=== PATIENT | female | born 1945 | race Caucasian/White ===

== ENCOUNTER 2017-04-12 10:39 | Emergency (ER) | payer OTHER ==
[~2017-04-12] VITALS: Ht 162.6 cm; Wt 55.7 kg
[~2017-04-12 10:39] MED LIST: DIAZEPAM5 MG PO; FIORINAL 50-321 EACH PO; LEXAPRO10 MG; OXYCONTIN15 MG PO; TIROSINT150 MCG PO; [UNRECOGNIZED DRUG - OTHER]
[2017-04-12 15:55] LABS: HEMATOCRIT 40.2 % (36.0-46.0); HEMOGLOBIN 13.4 G/DL (11.9-15.5); MCH 31.7 PG (29.0-34.0); MCHC 33.3 G/DL (30.0-36.0); PLATELET COUNT 418 K/uL (156-360); RBC DIS.WIDTH-CV 12.6 % (11.8-14.6); RBC DIS.WIDTH-SD 43.8 % (39-53); RED BLOOD COUNT 4.23 M/uL (3.80-5.20); WHITE BLOOD COUNT 8.3 K/uL (4.1-10.2)
[2017-04-12 16:05] LABS: CHLORIDE 97 mEq/L (99-109); POTASSIUM 4.5 mEq/L (3.7-5.4); SODIUM 139 mEq/L (136-147)
[2017-04-12 16:07] LABS: GLUCOSE 95 mg/dL (70-99)
[2017-04-12 16:11] LABS: CREATININE 0.7 mg/dL (0.6-1.3); GFR ESTIMATE (CALCULATED) > 59 mL/min/
[2017-04-12 16:12] LABS: UREA NITROGEN (BUN) 8 mg/dL (9-23)
[2017-04-12 16:19] LABS: TROP-I INTERPRETATION NEGATIVE; TROPONIN-I 0.01 ng/mL (0.0-0.30)
[2017-04-12 17:34] VITALS: BP 145/71
== END 2017-04-12 17:43 | disposition home or self-care (01) ==
LOC: EME 10:39
PROVIDERS: Physician Assistant
DX: M54.6 Pain in thoracic spine (principal); E03.9 Hypothyroidism, unspecified; I10 Essential (primary) hypertension; G43.919 Migraine, unspecified, intractable, without status migrainosus; F17.200 Nicotine dependence, unspecified, uncomplicated; Z79.891 Long term (current) use of opiate analgesic
CPT/HCPCS: 71046; 80048; 84484; 85027; 93005; 99281; 99284